=== PATIENT | female | born 1990 | race Two or more races ===

== ENCOUNTER 2017-05-21 09:28 | Inpatient (IN) | payer BC, OTHER ==
[~2017-05-21] VITALS: Ht 160 cm; Wt 101.4 kg
[2017-05-21 09:53] VITALS: BP 120/72
[2017-05-21 10:46] LABS: AMNI OBC PASS; AMNISURE POSITIVE (NEGATIVE)
[2017-05-21] MEDS ORDERED: LACTATED RINGERS 1,000 ML IV SCH ×2 (12:08→12:30)
[2017-05-21] MEDS ORDERED: OXYTOCIN 30U/ 0.9% NaCL 500ML 500 ML IV SCH (12:08)
[2017-05-21] MEDS ORDERED: SODIUM CITRATE/CITRIC ACID 30 ML UDC ONE (12:12)
[2017-05-21] MEDS ORDERED: METOCLOPRAMIDE 5 MG/ML, 2ML ONE (12:13)
[2017-05-21] MEDS ORDERED: HYDROmorphone 2 MG/ML, 1ML ONE (12:28)
[2017-05-21] MEDS ORDERED: FENTANYL PF 100 MCG/2ML ONE (12:28)
[2017-05-21] MEDS ORDERED: LACTATED RINGERS 1,000 ML IVBOLUS ONE (12:30)
[2017-05-21] MEDS: LACTATED RINGERS 1,000 ML IV SCH ×4 (12:49→22:49)
[2017-05-21] MEDS: OXYTOCIN 30U/ 0.9% NaCL 500ML 500 ML IV SCH ×2 (12:49→22:49)
[2017-05-21] MEDS ORDERED: ONDANSETRON 2MG/ML, 2ML ONE (12:50)
[2017-05-21] MEDS ORDERED: EPHEDRINE 50 MG/ML, 1ML ONE (12:50)
[2017-05-21] MEDS ORDERED: CEFAZOLIN 1,000 MG ONE (12:50)
[2017-05-21] MEDS ORDERED: OXYcodone IR 5MG TABLET PO PRN ×2 (13:00)
[2017-05-21] MEDS ORDERED: CARBOPROST TROMETHAMINE 250 MCG/ML, 1ML IM PRN (13:00)
[2017-05-21] MEDS ORDERED: METOCLOPRAMIDE 5 MG/ML, 2ML IV PRN (13:00)
[2017-05-21] MEDS ORDERED: MISOPROSTOL 200 MCG TABLET PR PRN (13:00)
[2017-05-21] MEDS ORDERED: OXYcodone/APAP 5/325MG TABLET PO PRN ×2 (13:00)
[2017-05-21] MEDS ORDERED: ONDANSETRON 2MG/ML, 2ML IV PRN (13:00)
[2017-05-21] MEDS ORDERED: ACETAMINOPHEN 325 MG TABLET PO PRN (13:00)
[2017-05-21] MEDS ORDERED: MEPERIDINE/PF 25MG/0.5ML IM PRN (13:00)
[2017-05-21] MEDS ORDERED: METHYLERGONOVINE 0.2 MG/ML IM PRN (13:00)
[2017-05-21] MEDS ORDERED: OXYTOCIN 30U/ 0.9% NaCL 500ML 500 ML ONE (14:38)
[2017-05-21] MEDS ORDERED: KETOROLAC 30 MG/1 ML ONE (14:38)
[2017-05-21] MEDS: KETOROLAC 30 MG/1 ML IV SCH ×2 (15:04→20:58)
[2017-05-21] MEDS ORDERED: SODIUM CITRATE/CITRIC ACID 30 ML UDC PO ONE (15:30)
[2017-05-21 16:45] VITALS: BP 118/76
[2017-05-21 20:00] VITALS: BP 105/58
[2017-05-22] VITALS: BP 102/60
[2017-05-22] MEDS ORDERED: RHOGAM FROM BLOOD BANK 1 NOTE EA IM/IV ONE (00:30)
[2017-05-22] MEDS: KETOROLAC 30 MG/1 ML IV SCH ×5 (01:00→21:11)
[2017-05-22 04:03] VITALS: BP 105/71
[2017-05-22 06:55] VITALS: BP_SYST 102; BP_SYST 99; BP_DIAS 54; BP_DIAS 65
[2017-05-22] MEDS: PRENATAL VIT/IRON/FA 1 EACH TABLET PO SCH (08:52)
[2017-05-22] MEDS: DOCUSATE 100 MG CAPSULE PO PRN ×2 (08:52→21:11)
[2017-05-22 12:00] VITALS: BP 115/70
[2017-05-22 20:00] VITALS: BP 118/67
[2017-05-23] MEDS: IBUPROFEN 600 MG TABLET PO PRN ×2 (04:35→11:32)
[2017-05-23 06:45] VITALS: BP 113/72
[2017-05-23] MEDS: DOCUSATE 100 MG CAPSULE PO PRN (09:02)
[2017-05-23] MEDS: PRENATAL VIT/IRON/FA 1 EACH TABLET PO SCH (09:03)
[2017-05-23] MEDS ORDERED: IBUP-1222 PO (10:06)
[2017-05-23] MEDS ORDERED: OXYC-302 PO (10:06)
[2017-05-23] MEDS ORDERED: DOCU-30 PO (10:06)
== END 2017-05-23 12:54 | disposition home or self-care (01) | DRG 765 ==
LOC: LDOP 09:28 → LDIP 12:12 → 2NW 16:30
PROVIDERS: ADMIT Obstetrics & Gynecology; ATTEND Obstetrics & Gynecology
PROC: 10D00Z1 Extraction of Products of Conception, Low, Open Approach (ICD-10-PCS; principal; 2017-05-21)
PROC: 0UB70ZZ Excision of Bilateral Fallopian Tubes, Open Approach (ICD-10-PCS; 2017-05-21)
PROC: 3E0334Z Introduction of Serum, Toxoid and Vaccine into Peripheral Vein, Percutaneous Approach (ICD-10-PCS; 2017-05-22)
DX: O34.211 Maternal care for low transverse scar from previous cesarean delivery (principal); O60.14X0 Preterm labor third trimester with preterm delivery third trimester, not applicable or unspecified; O99.214 Obesity complicating childbirth; E66.01 Morbid (severe) obesity due to excess calories; O99.824 Streptococcus B carrier state complicating childbirth; O26.893 Other specified pregnancy related conditions, third trimester; Z68.39 Body mass index [BMI] 39.0-39.9, adult; Z37.0 Single live birth; Z30.2 Encounter for sterilization; Z3A.36 36 weeks gestation of pregnancy; Z67.41 Type O blood, Rh negative
CPT/HCPCS: 36415; 76815; 84112; 85025; 85461; 86850; 86900; 88302; 89060; J0690; J1170; J1885; J2405; J2790; J3010; J2590; J2765; J7120; Q0114

== ENCOUNTER 2018-08-20 08:46 | Emergency (ER) | payer BC ==
[~2018-08-20] VITALS: Ht 162.6 cm; Wt 99.7 kg
[~2018-08-20 08:46] MED LIST: DOCU-131 PO; IBUP-1222 PO; OXYC-302 PO
[2018-08-20 09:43] LABS: BASOPHILS # (AUTO) 0.03 x10^3/uL (0-0.1); BASOPHILS % (AUTO) 0 % (0-1); EOSINOPHILS # (AUTO) 0.03 x10^3/uL (0-0.4); EOSINOPHILS % (AUTO) 0 % (1-7); LYMPHOCYTES # (AUTO) 1.56 x10^3/uL (1-3.4); LYMPHOCYTES % (AUTO) 15 % (22-44); MD NO; MEAN CORPUSCULAR HEMOGLOBIN 27.4 pg (27.0-34.8); MEAN CORPUSCULAR HGB CONC 32.5 g/dL (32.4-35.8); MEAN CORPUSCULAR VOLUME 84.4 fL (80-100); MEAN PLATELET VOLUME 8.3 fL (7.4-10.4); MONOCYTES # (AUTO) 0.55 x10^3/uL (0.2-0.8); MONOCYTES % (AUTO) 5 % (2-9); NEUTROPHILS % (AUTO) 80 % (42-75); PLATELET COUNT 280 x10^3/uL (130-400); RED BLOOD COUNT 5.17 x10^6/uL (3.82-5.3); RED CELL DISTRIBUTION WIDTH 12.6 % (9.6-15.2)
[2018-08-20 09:54] LABS: ALBUMIN 3.9 g/dL (3.4-5.0); CALCIUM 9.2 mg/dL (8.5-10.1); CHLORIDE 108 mmol/L (98-107)
[2018-08-20 09:57] LABS: ANION GAP 7 mmol/L (5-15)
[2018-08-20 10:08] LABS: ALANINE AMINOTRANSFERASE 18 U/L (12-78); ALKALINE PHOSPHATASE 68 U/L (45-117); BILIRUBIN,TOTAL 0.5 mg/dL (0.2-1.0); CREATININE 0.64 mg/dL (0.55-1.02); THYROID STIMULATING HORMONE 0.849 mIU/L (0.358-3.740); TOTAL PROTEIN 7.7 g/dL (6.4-8.2)
[2018-08-20 10:37] LABS: MICROSCOPIC NOT IND
[2018-08-20 10:39] LABS: CULTURE INDICATED? NO
[2018-08-20 11:40] VITALS: BP 111/70
== END 2018-08-20 11:59 | disposition home or self-care (01) ==
LOC: ED 11:53
DX: R42 Dizziness and giddiness (principal)
CPT/HCPCS: 36415; 80053; 81003; 83735; 84443; 85025; 93005; 99285